=== PATIENT | male | born 1990 | race African-American/Black ===

== ENCOUNTER 2019-08-10 09:17 | Emergency (ER) | payer BC, SELFPAY ==
--- NOTE | 2019-08-10 09:21 | ED.GENADULT ---
HPI - General Adult General Chief complaint: Upper Respiratory Infection Stated complaint: Congestion Time Seen by Provider: 08/10/19 09:44 Source: patient Mode of arrival: ambulatory Limitations: no limitations History of Present Illness HPI narrative: 29-year-old male patient presents to the [facility] with complaints of cold symptoms that started over the weekend. Patient states he also thinks he might of had food poisoning over the weekend and had some vomiting and diarrhea however he states that that has all resolved yesterday. Patient states he is mainly in here today because he is needing a work note because he has missed work today. Patient denies any fevers that he is aware of. Denies any ear pain. Patient states he does have a little bit of a stuffy runny nose. Denies any sore throat. Denies any coughing, chest pain, shortness of breath, abdominal pain, nausea, vomiting or diarrhea at this time. Patient denies taking anything for his symptoms so far. Related Data Home Medications Medication Instructions Recorded Confirmed No Home Medications 08/10/19 08/10/19 Allergies Allergy/AdvReac Type Severity Reaction Status Date / Time No Known Allergies Allergy Unverified 08/10/19 09:40 Review of Systems Review of Systems: Narrative: CONSTITUTIONAL: Denies fever, chills, or sweats. EYES: Denies visual changes, redness, or discharge. ENT: Positive rhinorrhea, congestion, denies sore throat, or otalgia. CARDIOVASCULAR: Denies chest pain, palpitations, or edema. RESPIRATORY: Denies cough or dyspnea. GASTROINTESTINAL: Denies abdominal pain, nausea, vomiting, or diarrhea. GENITOURINARY: Denies dysuria or hematuria. SKIN: Denies rash or itching. MUSCULOSKELETAL: Denies back pain, joint pain, or myalgia. NEUROLOGIC: Denies headache, numbness, or weakness. PSYCHIATRIC: Denies anxiety or depression. PMFSH Social History Social History Gender identity (if verbalized by the patient): Male Comments At the time of my signature I agree with nursing past medical history, surgical, social, and family history. There is no relevant family history pertinent to the presenting complaint. Exam Narrative: Exam Narrative: GENERAL: Well-appearing, well-nourished, and in no acute distress. HEAD: Normocephalic, atraumatic. Maxillary sinuses tender on palpation. EYES: PERRLA and EOMI. ENT: Nares with erythema and edema noted bilaterally, no rhinorrhea or epistaxis. Mucous membranes moist. Posterior pharynx with no erythema, tonsillar margin, exudates or lesions present. Bilateral TMs are clear with no erythema or foreign bodies in the canal. NECK: Supple. No lymphadenopathy CHEST: Clear to auscultation. No respiratory distress. HEART: Regular rate and rhythm. No murmur heard. Normal peripheral pulses. ABDOMEN: Soft, nontender, nondistended, normal active bowel sounds. EXTREMITIES: Normal range of motion. No edema. SKIN: Warm, dry, no rash. NEURO: No focal deficits. Alert and oriented x3. Course Vital Signs Vital signs: Vital Signs Temperature 36.6 C 08/10/19 09:31 Pulse Rate 82 08/10/19 09:31 Respiratory Rate 18 08/10/19 09:31 Blood Pressure 135/82 08/10/19 09:31 Pulse Oximetry 100 08/10/19 09:31 Temperature 36.6 C 08/10/19 09:31 Pulse Rate 82 08/10/19 09:31 Respiratory Rate 18 08/10/19 09:31 Blood Pressure 135/82 08/10/19 09:31 Pulse Oximetry 100 08/10/19 09:31 Vital signs reviewed. Medical Decision Making Differential Diagnosis Differential Diagnosis: Differential diagnosis: Allergic rhinitis, chronic sinusitis, tonsillitis, acute sinusitis, infectious mononucleosis, seasonal influenza, pertussis, diphtheria, meningococcal disease, viral syndrome, viral bronchitis, RSV. Notify patient that it does appear that he has probably most likely some inflammation and some sinus drainage causing the sinusitis symptoms and he can take o
[2019-08-10 09:31] VITALS: BP 135/82; PULSE 82; RESP 18; TEMP 36.6; O2SAT 100
== END 2019-08-10 09:51 | disposition home or self-care (01) ==
PROVIDERS: Emergency Provider Nurse Practitioner Family
DX: J01.00 Acute maxillary sinusitis, unspecified (principal)
CPT/HCPCS: 99211; G0463